=== PATIENT | male | born 1975 | race Caucasian/White ===

== ENCOUNTER 2023-07-24 10:24 | Outpatient (CLI) | payer OTHER, SELFPAY ==
--- NOTE | 2023-07-24 10:34 | XR_ITS ---
WS: [id number] HIP WITH PELVIS RIGHT TECHNIQUE: 3 views of the right hip with pelvis CLINICAL INFORMATION: Right hip pain COMPARISON: None. FINDINGS: Moderate degenerative arthritis RIGHT hip with joint space narrowing advanced for a patient this age. Subchondral cystic change with slight sclerosis involving the femoral head. Slight flattening of the femoral head can be seen with avascular necrosis. This can be further evaluated with MRI or CT. Part ially visualized surgical clips RIGHT pelvis. IMPRESSION: 1. Moderate degenerative arthritis RIGHT hip with joint space narrowing advanced for a patient thi s age. 2. Subchondral cystic change with slight sclerosis involving the femoral head with slight flattening can be seen with avascular necrosis. This can be further evaluated with MRI or CT. [place] classification: grade 2: small cysts in femoral head/acetabulum or moderate joint space narrow ing or moderate loss of head sphericity
--- NOTE | 2023-07-24 10:35 | XR_ITS ---
WS: [id number] LUMBAR SPINE TECHNIQUE: 3 views of the lumbar spine CLINICAL INFORMATION: Lower back pain COMPARISON: None. FINDINGS: Five [id number] lumbar vertebral bodies. Mild lumbar curve convex RIGHT. Surgical clips in the R IGHT pelvis. Slight retrolisthesis L4 on L5 and L5 on S1. Mild disc space narrowing L1-L2, L2-L3, and L5-S1. Moderate facet arthropathy L4-L5 and L5-S1. Mild bony foraminal narrowing L5-S1. Aortic calci fication. Degenerative arthritis both hips partially visualized. IMPRESSION: 1. Mild lumbar curve convex RIGHT. 2. Slight retrolisthesis L4 on L5 and L5 on S1. 3. Mild disc space narrowing L1-L2, L2-L3, and L5-S1. Moderate facet arthropathy L4-L5 and L5-S1. 4. Mild bony foraminal narrowing L5-S1.
== END 2023-07-24 10:25 | disposition home or self-care (01) ==
LOC: RAD 10:27
PROVIDERS: Family Provider Physician Assistant; Visit Provider Dermatology
DX: Z02.71 Encounter for disability determination (principal); M16.11 Unilateral primary osteoarthritis, right hip; M43.17 Spondylolisthesis, lumbosacral region; M48.07 Spinal stenosis, lumbosacral region; M89.8X5 Other specified disorders of bone, thigh
CPT/HCPCS: 72100; 73502

== ENCOUNTER 2025-05-04 15:25 | Oncology outpatient (recurring) (ONCR) | payer MEDICAID, SELFPAY ==
[2025-05-04 16:25] LABS: Hematocrit 35.3 % (37-53); Hemoglobin 10.90 g/dL (11.27-16.99); Mean Corpuscular HGB Conc 30.9 g/dL (30-55); Mean Corpuscular Hemoglobin 27.8 pg (27-33); Mean Corpuscular Volume 90.1 fl (82-101); Nucleated Red Blood Cells % 0 %; Platelet Count 66 10^3/cmm (157-399); Red Blood Count 3.92 10^6/uL (3.85-5.65); White Blood Count 4.65 10^3/uL (3.29-11.43)
[2025-05-04 17:08] LABS: Hepatitis A Antibody IgM Non-Reactive (Nonreactive); Hepatitis B Surface Antigen Non-Reactive (Nonreactive)
[2025-05-04 17:28] LABS: Alanine Aminotransferase 8 U/L (0-41); Albumin Level 4.1 g/dL (3.5-5.2); Alkaline Phosphatase 101 U/L (40-130); Anion Gap 17.5 (5-19); Aspartate Amino Transferase 11 U/L (0-40); Blood Urea Nitrogen 39 mg/dL (6-20); Calcium 9.2 mg/dL (8.5-10.5); Carbon Dioxide 19 mmol/L (22-29); Chloride 109 mmol/L (98-107); Creatinine Clr Calc Pharmacy 70.3770; Globulin 3.4 g/dL (1.3-4.6); Glucose 124 mg/dL (65-115); Osmolality Calculated 303 mOsm/kg (285-295); Potassium 4.5 mmol/L (3.5-5.1); Sodium 141 mmol/L (136-145); Thyroid Stimulating Hormone 2.40 uIU/mL (0.27-4.20); Total Protein 7.5 g/dL (6.6-8.7); Vitamin B12 266 pg/mL (232-1245)
[2025-05-04 17:45] LABS: Slide Review Slide Review Perform
[2025-05-06 05:55] LABS: PROTEIN, TOTAL 6.9 g/dL (6.1-8.1)
[2025-05-06 16:59] LABS: ALPHA 1 GLOBULIN 0.3 g/dL (0.2-0.3); ALPHA 2 GLOBULIN 0.6 g/dL (0.5-0.9); BETA 1 GLOBULIN 0.4 g/dL (0.4-0.6); BETA 2 GLOBULIN 0.4 g/dL (0.2-0.5)
== END 2025-05-28 23:59 | disposition home or self-care (01) ==
PROVIDERS: Family Provider Physician Assistant; Visit Provider Internal Medicine Medical Oncology
DX: D69.6 Thrombocytopenia, unspecified (principal); Z53.9 Procedure and treatment not carried out, unspecified reason
CPT/HCPCS: 36415; 80053; 82607; 82746; 84155; 84165; 84443; 85025; 86038; 86334; 86705; 86706; 86709; 86803; 87340

== ENCOUNTER 2025-06-01 10:46 | Oncology outpatient (recurring) (ONCR) | payer MEDICAID, SELFPAY ==
--- NOTE | 2025-06-01 11:00 | US_ITS ---
WS: [id number] Complete ABDOMINAL ULTRASOUND HISTORY: panctopenia COMPARISON: None available. Liver: 15.3 cm in length. Limited visualization of the liver due to body habitus. No mass identified. No intrahepatic duct dilatation. Portal Vein: Normal hepatopetal flow with monophasic waveform. Gallbladder: Normally distended gallbladder with no stones or wall thickening. CBD: 0.2 cm Pancreas: Normal size and echogenicity. Right kidney: 10.9 cm x 4.4 x 5.4 cm. Cortex:1.2 cm. Limited evaluation. No hydronephrosis. Left kidney: LEFT kidney is not identified. Spleen: 13.5 cm. Normal size and echogenicity. Aorta and IVC: Limited. US/US abdomen complete* [id number] Impression: 1. Technically difficult abdominal ultrasound. 2. Negative gallbladder. 3. RIGHT renal transplant is identified with poor visualization. No hydronephr osis or cortical thinning. 4. [place] LEFT kidney is not identified. 5. Poorly visualized liver.
== END 2025-06-27 23:59 | disposition home or self-care (01) ==
LOC: ONCMED 10:48
PROVIDERS: Family Provider Physician Assistant; PCP Radiology Diagnostic Radiology; Visit Provider Internal Medicine Medical Oncology
DX: D61.818 Other pancytopenia (principal); Z94.0 Kidney transplant status
CPT/HCPCS: 76700